=== PATIENT | female | born 1965 | race Caucasian/White ===

== ENCOUNTER 2019-02-11 01:29 | Emergency (ER) | payer OTHER ==
[~2019-02-11] VITALS: Ht 175.3 cm; Wt 58.5 kg
[~2019-02-11 01:29] MED LIST: CIPR250 PO; HYDACE5 PO; MEDR10 PO; [UNRECOGNIZED DRUG - REMARK]
== END 2019-02-11 02:35 | disposition home or self-care (01) ==
LOC: ER 01:29
DX: S50.02XA Contusion of left elbow, initial encounter (principal); F15.10 Other stimulant abuse, uncomplicated; F17.210 Nicotine dependence, cigarettes, uncomplicated; X58.XXXA Exposure to other specified factors, initial encounter
CPT/HCPCS: 73080; 99283-25

== ENCOUNTER 2019-03-06 13:31 | Emergency (ER) | payer OTHER ==
[~2019-03-06] VITALS: Ht 172.7 cm; Wt 57.6 kg
[2019-03-06 14:58] LABS: BASOPHILS ABSOLUTE AUTO 0.04 K/mm3 (0.00-0.23); BASOPHILS PERCENT AUTO 1 % (0-2); EOSINOPHILS ABSOLUTE AUTO 0.37 K/mm3 (0.00-0.68); EOSINOPHILS PERCENT AUTO 5 % (0-6); Hematocrit 38.2 % (33.0-51.0); Hemoglobin 12.4 g/dL (11.5-16.0); IMMATURE GRAN ABSOLUTE AUTO 0.03 K/mm3 (0.00-0.10); IMMATURE GRAN PERCENT AUTO 0 % (0-1); LYMPHOCYTES ABSOLUTE AUTO 1.75 K/mm3 (0.84-5.20); LYMPHOCYTES PERCENT AUTO 22 % (21-46); MONOCYTES ABSOLUTE AUTO 0.83 K/mm3 (0.16-1.47); MONOCYTES PERCENT AUTO 11 % (4-13); Mean Corpuscular HGB 29.3 pg (26.0-34.0); Mean Corpuscular HGB Conc 32.5 g/dL (31.5-36.5); Mean Corpuscular Volume 90 fL (80-100); Mean Platelet Volume 10.8 fL (9.1-12.4); NEUTROPHILS PERCENT AUTO 62 % (41-73); Platelet Count 330 K/mm3 (150-400); RDW Coefficient Variation 13.7 % (11.7-14.2); RDW Standard Deviation 45.4 fL (35.1-46.3); Red Blood Cell Count 4.23 M/mm3 (3.80-5.20); White Blood Cell Count 7.92 K/mm3 (4.00-11.30)
[2019-03-06 15:20] LABS: Alanine Aminotransfer (ALT/SGP 36 U/L (12-78); Albumin, Blood 3.4 g/dL (3.4-5.0); Albumin/Globulin Ratio 0.9 (0.8-1.8); Alk Phos 102 U/L (50-136); Anion Gap 2 mmol/L (6-16); Aspartate Aminotrans (AST/SGOT 31 U/L (12-37); Bilirubin, Total 0.4 mg/dL (0.1-1.0); Blood Urea Nitrogen 15 mg/dL (8-24); Bun/Creatinine Ratio 24.5 (12.0-20.0); CO2, Blood 30 mmol/L (21-32); Calcium, Blood 8.4 mg/dL (8.5-10.1); Chloride, Blood 107 mmol/L (98-108); Creatinine, Blood 0.61 mg/dL (0.40-1.00); Ethanol (Alcohol), Blood, Med <3 mg/dL; Globulin, Blood 3.8 g/dL (2.2-4.0); Glomerular Filtration Rate >60 (60-); Glucose, Blood 94 mg/dL (70-99); Salicylate 2.9 mg/dL (2.8-20.0); Sodium, Blood 139 mmol/L (136-145); Thyroxine (T4) 8.8 ug/dL (4.8-13.9); Total Protein, Blood 7.2 g/dL (6.4-8.2)
[2019-03-06 15:29] LABS: Acetaminophen, Random <2.0 ug/mL (10.0-30.0)
== END 2019-03-06 14:40 | disposition left against medical advice (07) ==
LOC: ER 13:31
PROVIDERS: Emergency Medicine
DX: R45.1 Restlessness and agitation (principal); Z53.20 Procedure and treatment not carried out because of patient's decision for unspecified reasons
CPT/HCPCS: 36415; 80053; 84436; 84443; 85025; 99283; G0480

== ENCOUNTER 2019-03-18 13:27 | Emergency (ER) | payer OTHER ==
[~2019-03-18] VITALS: Ht 177.8 cm; Wt 54.4 kg
== END 2019-03-18 13:39 | disposition left against medical advice (07) ==
LOC: ER 13:27
DX: Z53.21 Procedure and treatment not carried out due to patient leaving prior to being seen by health care provider (principal)
CPT/HCPCS: 99281

== ENCOUNTER 2019-03-22 17:00 | Emergency (ER) | payer OTHER ==
[~2019-03-22] VITALS: Ht 175.3 cm; Wt 59.0 kg
[2019-03-22 18:12] LABS: Source, Urine Clean Catch
[2019-03-22 18:18] LABS: BASOPHILS ABSOLUTE AUTO 0.07 K/mm3 (0.00-0.23); BASOPHILS PERCENT AUTO 1 % (0-2); EOSINOPHILS PERCENT AUTO 3 % (0-6); Hematocrit 37.5 % (33.0-51.0); Hemoglobin 12.4 g/dL (11.5-16.0); IMMATURE GRAN ABSOLUTE AUTO 0.06 K/mm3 (0.00-0.10); IMMATURE GRAN PERCENT AUTO 0 % (0-1); LYMPHOCYTES ABSOLUTE AUTO 1.77 K/mm3 (0.84-5.20); LYMPHOCYTES PERCENT AUTO 12 % (21-46); MONOCYTES ABSOLUTE AUTO 1.06 K/mm3 (0.16-1.47); MONOCYTES PERCENT AUTO 7 % (4-13); Mean Corpuscular HGB 29.9 pg (26.0-34.0); Mean Corpuscular HGB Conc 33.1 g/dL (31.5-36.5); Mean Corpuscular Volume 90 fL (80-100); Mean Platelet Volume 10.9 fL (9.1-12.4); NEUTROPHILS ABSOLUTE AUTO 11.94 K/mm3 (1.96-9.15); NEUTROPHILS PERCENT AUTO 78 % (41-73); Platelet Count 316 K/mm3 (150-400); RDW Coefficient Variation 13.2 % (11.7-14.2); RDW Standard Deviation 44.3 fL (35.1-46.3); Red Blood Cell Count 4.15 M/mm3 (3.80-5.20)
[2019-03-22 18:21] LABS: Bilirubin, Urine Neg (Neg); Blood, Urine Neg (Neg); Glucose Qualitative, Urine Neg (Neg); Ketones, Urine Neg (Neg); Leukocyte Esterase, Urine Neg (Neg); Nitrite, Urine Neg (Neg); Protein, Urine Neg (Neg); Specific Gravity, Urine 1.005 (1.003-1.022); Urobilinogen, Urine NORM (Normal)
[2019-03-22 18:42] LABS: Alanine Aminotransfer (ALT/SGP 31 U/L (12-78); Albumin, Blood 3.2 g/dL (3.4-5.0); Albumin/Globulin Ratio 0.9 (0.8-1.8); Alk Phos 97 U/L (50-136); Anion Gap 4 mmol/L (6-16); Aspartate Aminotrans (AST/SGOT 20 U/L (12-37); Bilirubin, Total 0.6 mg/dL (0.1-1.0); Blood Urea Nitrogen 15 mg/dL (8-24); Bun/Creatinine Ratio 21.3 (12.0-20.0); CO2, Blood 28 mmol/L (21-32); Calcium, Blood 8.6 mg/dL (8.5-10.1); Chloride, Blood 102 mmol/L (98-108); Creatinine, Blood 0.71 mg/dL (0.40-1.00); Ethanol (Alcohol), Blood, Med 4 mg/dL; Globulin, Blood 3.5 g/dL (2.2-4.0); Glomerular Filtration Rate >60 (60-); Glucose, Blood 123 mg/dL (70-99); Salicylate <1.7 mg/dL (2.8-20.0); Sodium, Blood 134 mmol/L (136-145); Total Protein, Blood 6.7 g/dL (6.4-8.2)
[2019-03-22 18:45] LABS: Appearance, Urine Clear (Clear); Color, Urine Pale Yellow (P-Yellow); U Amphetamine Screen Not Detected; U Barbituate Screen Not Detected; U Benzodiazapine Screen Not Detected; U Cocaine Screen Not Detected; U Methadone Screen Not Detected; U Methamphetamine Screen Not Detected; U Opiates Screen Not Detected; U Phencyclidine Screen Not Detected
[2019-03-22 18:45] LABS: Thyroid Stimulating Hormone 0.796 uIU/mL (0.360-4.800)
[2019-03-22 18:46] LABS: Acetaminophen, Random <2.0 ug/mL (10.0-30.0)
[2019-03-22 18:46] LABS: U Buprenorphine Screen Not Detected; U Cannabinoids Screen DETECTED; U Oxycodone Screen Not Detected; U Propoxyphene Screen Not Detected
== END 2019-03-22 20:35 | disposition home or self-care (01) ==
LOC: ER 17:00
PROVIDERS: Physician Assistant
DX: S90.821A Blister (nonthermal), right foot, initial encounter (principal); F32.9 Major depressive disorder, single episode, unspecified; Z59.0 Homelessness; F17.210 Nicotine dependence, cigarettes, uncomplicated; Z86.19 Personal history of other infectious and parasitic diseases; X58.XXXA Exposure to other specified factors, initial encounter
CPT/HCPCS: 36415; 80053; 81003; 81025; 84443; 85025; 90471; 90714; 99283-25; G0480

== ENCOUNTER 2020-08-22 04:07 | Emergency (ER) | payer OTHER ==
[~2020-08-22] VITALS: Ht 172.7 cm; Wt 68.0 kg
[2020-08-22] MEDS ORDERED: Diflucan100 MG PO (04:19)
[2020-08-22 05:56] LABS: Source, Urine Clean Catch
[2020-08-22 05:58] LABS: Bilirubin, Urine Neg (Neg); Blood, Urine 5+ (Neg); Glucose Qualitative, Urine Neg (Neg); Ketones, Urine Neg (Neg); Leukocyte Esterase, Urine 3+ (Neg); Nitrite, Urine Neg (Neg); Protein, Urine 3+ (Neg); Specific Gravity, Urine 1.005 (1.003-1.022); Urobilinogen, Urine NORM (Normal)
[2020-08-22 06:05] LABS: Appearance, Urine Hazy (Clear); Color, Urine Yellow (P-Yellow)
[2020-08-22 06:06] LABS: White Blood Cells, Urine TNTC /hpf (0-5)
[2020-08-22 06:07] LABS: Bacteria Mod /hpf; Red Blood Cells, Urine 25-50 /hpf (0-2); Squamous Epithelial Cells Few /hpf (Few)
[2020-08-22] MEDS ORDERED: CIPRO500 M1 PO (06:30)
[2020-08-22] MEDS ORDERED: PHENA200 PO (06:30)
== END 2020-08-22 06:51 | disposition home or self-care (01) ==
LOC: ER 04:07
PROVIDERS: Emergency Medicine
DX: N10 Acute pyelonephritis (principal); F17.210 Nicotine dependence, cigarettes, uncomplicated; Z79.899 Other long term (current) drug therapy
CPT/HCPCS: 81001; 87077; 87086; 87186; 99283; A9270

== ENCOUNTER 2023-03-19 06:33 | Emergency (ER) | payer OTHER ==
[~2023-03-19] VITALS: Ht 175.3 cm; Wt 61.2 kg
[~2023-03-19 06:33] MED LIST changes: +CIPRO500 M1 PO; +Diflucan100 MG PO; +PHENA200 PO
[2023-03-19 08:00] VITALS: BP 138/93
[2023-03-19] MEDS ORDERED: IBUP800 PO (08:08)
[2023-03-19] MEDS ORDERED: VENL37.5ER PO (08:08)
[2023-03-19] MEDS ORDERED: Amoxicillin500 MG PO (08:14)
== END 2023-03-19 08:28 | disposition home or self-care (01) ==
LOC: ER 06:33
DX: K04.7 Periapical abscess without sinus (principal); B19.20 Unspecified viral hepatitis C without hepatic coma; F17.210 Nicotine dependence, cigarettes, uncomplicated; Z88.5 Allergy status to narcotic agent
CPT/HCPCS: 99282; A9270

== ENCOUNTER 2023-08-18 08:08 | Inpatient (IN) | payer OTHER ==
[2023-08-18] VITALS (7 sets, daily range): BP systolic 91–123; BP diastolic 72–84
[~2023-08-18] VITALS: Ht 177.8 cm; Wt 64.9 kg
[~2023-08-18 08:08] MED LIST changes: +Amoxicillin500 MG PO; +IBUP800 PO; +VENL37.5ER PO
[2023-08-18 09:04] LABS: BASOPHILS ABSOLUTE AUTO 0.06 K/mm3 (0.00-0.23); BASOPHILS PERCENT AUTO 1 % (0-2); EOSINOPHILS ABSOLUTE AUTO 0.29 K/mm3 (0.00-0.68); EOSINOPHILS PERCENT AUTO 4 % (0-6); Hematocrit 37.6 % (33.0-51.0); Hemoglobin 12.8 g/dL (11.5-16.0); IMMATURE GRAN ABSOLUTE AUTO 0.02 K/mm3 (0.00-0.10); IMMATURE GRAN PERCENT AUTO 0 % (0-1); LYMPHOCYTES ABSOLUTE AUTO 2.03 K/mm3 (0.84-5.20); LYMPHOCYTES PERCENT AUTO 28 % (21-46); MONOCYTES ABSOLUTE AUTO 0.69 K/mm3 (0.16-1.47); MONOCYTES PERCENT AUTO 10 % (4-13); Mean Corpuscular HGB 29.4 pg (26.0-34.0); Mean Corpuscular Volume 86 fL (80-100); Mean Platelet Volume 10.3 fL (9.1-12.4); NEUTROPHILS ABSOLUTE AUTO 4.12 K/mm3 (1.96-9.15); NEUTROPHILS PERCENT AUTO 57 % (41-73); Platelet Count 266 K/mm3 (150-400); Red Blood Cell Count 4.35 M/mm3 (3.80-5.20); White Blood Cell Count 7.21 K/mm3 (4.00-11.30)
[2023-08-18 09:21] LABS: Albumin, Blood 3.4 g/dL (3.4-5.0); Albumin/Globulin Ratio 1.1 (0.8-1.8); Bilirubin, Total 0.3 mg/dL (0.1-1.0); Bun/Creatinine Ratio 28.1 (12.0-20.0); Calcium, Blood 8.5 mg/dL (8.5-10.1); Creatinine, Blood 0.61 mg/dL (0.40-1.00); Globulin, Blood 3.1 g/dL (2.2-4.0); Potassium, Blood 3.9 mmol/L (3.5-5.5); Total Protein, Blood 6.5 g/dL (6.4-8.2)
[2023-08-18 11:29] LABS: Anti-Xa UFH, PHA Monitoring <0.10 IU/mL; International Normalized Ratio 0.94; Prothrombin Time Results 9.9 Sec (9.7-11.5)
[2023-08-18 11:59] LABS: CHOL/HDL RATIO 2.6; Cholesterol 189 mg/dL (50-200); HDL Cholesterol 74 mg/dL (>39); LDL/HDL RATIO 1.3; Low Density Lipoprotein Chol 96 mg/dL (0-110); Triglycerides 94 mg/dL (30-160); Very Low Density Lipoprot Chol 18 mg/dL (6-32)
--- NOTE | 2023-08-18 17:15 | NUR ---
ADMIT NOTE PT A&OX4. SP02>90% ON RA. TELEMTRY SHOWS SINUSBRADY, HR 40'S-60'S. VSS. 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 PT W/ R RADIAL SITE. SITE W/ TR BAND, NO BRUISING, NO BLEEDING, NO HEMATOMA NOTED. TR BAND FULLY DEFLATED AT 1700. WILL REMOVED AFTER FULL HOUR DEFLATED PER PROTOCOL. ARM BOARD IN PLACE. ECHO DONE THIS SHIFT. K+NS INFUSING PER EMAR. FAMILY IN ROOM. PT STATES HUNGRY. CALL PLACED TO MD KLEIN. MD KLEIN W/ ORDERS FOR CARDIAC DIET. PT CURRENTLY SNACKING IN ROOM, WATCHING TV. CALL LIGHT IN REACH.
[2023-08-19] VITALS: BP 127/70
[2023-08-19 05:10] VITALS: BP 127/59
[2023-08-19 05:22] LABS: Albumin, Blood 3.2 g/dL (3.4-5.0); Albumin/Globulin Ratio 1.1 (0.8-1.8); Bilirubin, Total 0.3 mg/dL (0.1-1.0); Bun/Creatinine Ratio 30.1 (12.0-20.0); Calcium, Blood 8.5 mg/dL (8.5-10.1); Creatinine, Blood 0.53 mg/dL (0.40-1.00); Potassium, Blood 4.4 mmol/L (3.5-5.5); Total Protein, Blood 6.2 g/dL (6.4-8.2)
--- NOTE | 2023-08-19 06:41 | NUR ---
NO EVENTS THROUGH TNE NIGHT DENIES CHEST PAIN PRESSURE OR SOB. EDUCATION ON HEALTH AND CURRENT ILLNESS FOR APPROXIMATELY 1 HOUR. ALL CONCERNS ADDRESSED. VSS MINUS HEARTRATE. PATIENT HAS BEEN SB LOW OF 39 ONCE ASYMPTOMATIC, ADDITIONALLY SHE HAD A 1 X VTACH OF 11 BEATS RESIDENT AWARE, NEEDED HER VENLAFAXINE, DUE TO ENDORSED WITHDRAWAL, RESIDENT OK'D. GAVE PATIENT 0900 EARLY. VOIDING WELL, INFUSING 20MEQ 1L NS AT [address] TO ONLY WAY SHE COULD TOLERATE IT, R RADIAL SITE LOOKS WELL NO CONCERNS RECOVERED WELL BY PREVIOUS RN. NO CONCERNS FROM THIS RN AT THIS TIME. 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
[2023-08-19 07:31] VITALS: BP 126/73
--- NOTE | 2023-08-19 07:38 | NUR ---
AM ASSESSMENT PT IS A/O X'S 4, INDEPENDENT IN ROOM. RADIAL SITE R WRIST W/TEGADERM W/NO SWELLING OR TENDERNESS, ARMBOARD IN PLACE. PER TELE PT HAS REMAINED SINUS YASMIN W/RATE 48 AT THIS TIME. PT DENIES CP, ALL OTHER VSS.
--- NOTE | 2023-08-19 14:31 | NUR ---
DISCHARGE PT DISCHARGED HOME FROM UNIT AT APROX 1359. PT GIVEN WRITTEN AND VERBAL INSTRUCTIONS INCLUDING DC INSTUCTION SHEET ON RADIAL ACCESS SITE AND VERBALIZED UNDERSTANDING OF THESE INSTRUCTIONS. IV REMOVED. NO NEW MEDICATIONS. WC TO CAR.
== END 2023-08-19 14:03 | disposition home or self-care (01) | DRG 896 ==
LOC: ER 08:08 → PCU 11:36
PROVIDERS: Emergency Medicine; ADMIT Internal Medicine
PROC: B2111ZZ Fluoroscopy of Multiple Coronary Arteries using Low Osmolar Contrast (ICD-10-PCS; principal; 2023-08-18)
PROC: 4A023N7 Measurement of Cardiac Sampling and Pressure, Left Heart, Percutaneous Approach (ICD-10-PCS; 2023-08-18)
DX: F15.90 Other stimulant use, unspecified, uncomplicated (principal); I21.A1 Myocardial infarction type 2; F17.210 Nicotine dependence, cigarettes, uncomplicated; F32.A Depression, unspecified; F41.9 Anxiety disorder, unspecified; M19.90 Unspecified osteoarthritis, unspecified site; Z79.891 Long term (current) use of opiate analgesic; Z88.5 Allergy status to narcotic agent; Z86.19 Personal history of other infectious and parasitic diseases; Z91.048 Other nonmedicinal substance allergy status
CPT/HCPCS: 36415; 71045; 76937; 80048; 80053; 80061; 83690; 84484; 85025; 85520; 85610; 85730; 93005; 93010; 93306; 93454; 94762; 99152; 99285-25; A9270; C1769; C1887; C1894; J1644; J2250; J3010; J3480; J7030; J7050; Q9967